=== PATIENT | male | born 1975 | race Caucasian/White ===

== ENCOUNTER 2019-12-01 18:32 | Emergency (ER) | payer OTHER, SELFPAY ==
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
[2019-12-01 18:43] VITALS: BP 153/109; PULSE 147; RESP 40; TEMP 36.4; O2SAT 93
--- NOTE | 2019-12-01 18:47 | ECG_ITS ---
Measurements Intervals [employer] Rate: 143 P: 38 ND: 149 QRS: 9 QRSD: 87 T: 19 QT: 275 QTc: 424 Interpretive Statements SINUS TACHYCARDIA ANTEROSEPTAL INFARCT, AGE INDETERMINATE BASELINE ARTIFACT- II, III, AVF ABNORMAL ECG Electronically Signed On 12-02-2019 6:58:44 CDT by Luis Carlos Wilkinson D.O.
[2019-12-01 18:51] VITALS: O2SAT 97
[2019-12-01 19:03] LABS: Basophils Absolute Auto 0.1 K/mm3 (0.0-0.1); Basophils Percent Auto 0.4 % (0.2-1.2); Eosinophils Absolute Auto 0.4 K/mm3 (0-0.3); Eosinophils Percent Auto 2.4 % (0-4.4); Hematocrit 47.2 % (42.0-52.0); Hemoglobin 15.5 g/dL (14.0-18.0); Immature Granulocyte Absolute 0.09 K/mm3 (0.00-0.031); Immature Granulocyte Percent A 0.6 % (0-0.5); Lymphocytes Absolute Auto 2.14 K/mm3 (0.9-3.2); Lymphocytes Percent Auto 14.7 % (18.3-44.2); Mean Corpuscular HGB Conc 32.8 g/dl (32-36); Mean Corpuscular Hemoglobin 32.4 pg (26-34); Mean Corpuscular Volume 98.5 fl (80-100); Mean Platelet Volume 10.1 fl (7.4-10.4); Monocytes Absolute Auto 1.3 K/mm3 (0.1-0.6); Monocytes Percent Auto 8.6 % (2.6-8.5); Neutrophils Absolute Auto 10.7 K/mm3 (1.3-6.7); Neutrophils Percent Auto 73.3 % (45.5-73.1); Platelet Count Result 299 k/mm3 (150-375); Red Blood Count 4.79 M/mm3 (4.6-6.20); Red Cell Distribution Width 13.2 % (11.5-14.5); White Blood Count 14.6 K/mm3 (4.5-10.0)
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
[2019-12-01 19:14] LABS: Anion Gap 9 mmol/L (8-16); Blood Urea Nitrogen 14 mg/dL (9-20); Carbon Dioxide 29 mmol/L (22-30); Chloride 102 mmol/L (98-107); Estimated CRCL calculation 105 ml/min; Estimated Glomerular Filt Rate > 60; Glucose 141 mg/dL (75-110); Potassium 4.3 mmol/L (3.4-5.0); Sodium 140 mmol/L (137-145)
[2019-12-01] MEDS: ONDANSETRON INJ 4 MG/2 ML VIAL IV PUSH ×2 (19:15→21:13)
[2019-12-01] MEDS: HYDROmorphone HCL INJ (*CRX) 1 MG/ML SYR 0.5 MG IV PUSH ×2 (19:15→21:13)
[2019-12-01 19:21] VITALS: BP 149/107; PULSE 142; RESP 28; O2SAT 95
[2019-12-01 19:44] LABS: Alanine Aminotransferase 42 U/L (4-50); Albumin Level 4.3 g/dL (3.5-5.1); Alkaline Phosphatase 71 U/L (38-126); Aspartate Amino Transferase 41 U/L (17-59); Bilirubin,Total 0.8 mg/dL (0.2-1.3)
[2019-12-01 19:51] LABS: Alveolar/Arterial O2 Gradient 46.7 mmHg; Base Excess ABG -0.4 mEq/l (+/-2.0); Fractional Inspired Oxygen 21 %; HCO3 ABG 23.9 mEq/l (22.0-26.0); Oxygen Content ABG 19.5 %vol (16.0-22.0); Oxygen Saturation ABG 90.1 % (95.0-100.0); Oxyhemoglobin 88.6 % THb (90.0-100.0); PCO2 ABG 38.4 mmHg (35.0-45.0); PO2 FiO2 Ratio Arterial Blood 2.71 %; Total Hemoglobin 15.7 g/dL (12.0-18.0); pH ABG 7.412 (7.350-7.450)
--- NOTE | 2019-12-01 19:56 | PCRCNOTE ---
per Dr. Lafleur request, pt placed back on 2L/M O2 after ABG results
[2019-12-01 19:59] VITALS: BP 133/97; PULSE 135; RESP 25; O2SAT 95
[2019-12-01] MEDS: SODIUM CHLORIDE 0.9% IV 1,000 ML 999 ML IV CONT (20:24)
[2019-12-01 20:25] LABS: Device ROOM AIR; Modified Allen's Test Pass; Site Drawn LEFT RADIAL
--- NOTE | 2019-12-01 20:38 | PC.NURSE ---
Called [facility] to transport patient. ETA [id number]
[2019-12-01 21:05] VITALS: BP 131/93; PULSE 115; RESP 25; O2SAT 96
[2019-12-01 22:03] VITALS: BP 145/94; PULSE 115; RESP 18; O2SAT 99
== END 2019-12-01 22:05 | disposition short-term general hospital (02) ==
PROVIDERS: Emergency Provider Emergency Medicine; PCP Family Medicine
DX: S27.321A Contusion of lung, unilateral, initial encounter (principal); R09.02 Hypoxemia; V23.4XXA Motorcycle driver injured in collision with car, pick-up truck or van in traffic accident, initial encounter
CPT/HCPCS: 36415; 36600; 71045; 80048; 80076; 82805; 85025; 93005; 96361; 96374; 96375; 96376; 99285; J1170; J2405; J7030

== ENCOUNTER 2019-12-08 22:35 | Emergency (ER) | payer OTHER, SELFPAY ==
[2019-12-08 22:37] VITALS: BP 136/91; PULSE 135; RESP 15; TEMP 36.4; O2SAT 96
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
== END 2019-12-08 23:26 | disposition home or self-care (01) ==
PROVIDERS: Emergency Provider Emergency Medicine; PCP Family Medicine
DX: L03.116 Cellulitis of left lower limb (principal)
CPT/HCPCS: 99283; A9270

== ENCOUNTER 2019-12-10 17:41 | Emergency (ER) | payer OTHER, SELFPAY ==
[2019-12-10] VITALS (11 sets, daily range): BP systolic 116–137; BP diastolic 74–93; PULSE 125–133; RESP 22–35; TEMP 36.9; O2SAT 95–100
--- NOTE | ~2019-12-10 | CT_ITS ---
EXAMINATION: CTA [facility] DATE: 12/10/2019 20:08 INDICATION: Swollen discolored left foot. TECHNIQUE: Computed tomographic angiography (CTA) of the left lower extremity from the mid thigh to t he toes was performed with 150 mL Omnipaque-350 intravenous contrast. Automated exposure control and iterative reconstruction technique were employed. The dose-length product was 311.20 mGy-cm. Maximum intensity projection 3D-reconstructions of the arteries were created by the technologist on a [employer] workstation. COMPARISON: None. FINDINGS: There is no significant stenosis in popliteal artery, tibioperoneal trunk, peroneal artery, or the an terior or posterior tibial arteries. There is subcutaneous edema in the foot and ankle. IMPRESSION: 1. No significant arterial occlusive disease. Reviewed, dictated and finalized at location A. [employer]
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
--- NOTE | 2019-12-10 18:47 | PC.NURSE ---
resting on stretcher. waiting for MD.
[2019-12-10 18:49] LABS: Basophils Absolute Auto 0.1 K/mm3 (0.0-0.1); Basophils Percent Auto 0.7 % (0.2-1.2); Eosinophils Absolute Auto 0.8 K/mm3 (0-0.3); Eosinophils Percent Auto 5.6 % (0-4.4); Hematocrit 46.7 % (42.0-52.0); Hemoglobin 15.6 g/dL (14.0-18.0); Immature Granulocyte Percent A 1.4 % (0-0.5); Lymphocytes Absolute Auto 2.41 K/mm3 (0.9-3.2); Lymphocytes Percent Auto 16.7 % (18.3-44.2); Mean Corpuscular HGB Conc 33.4 g/dl (32-36); Mean Corpuscular Hemoglobin 32.4 pg (26-34); Mean Corpuscular Volume 97.1 fl (80-100); Monocytes Absolute Auto 1.2 K/mm3 (0.1-0.6); Monocytes Percent Auto 8.2 % (2.6-8.5); Neutrophils Absolute Auto 9.7 K/mm3 (1.3-6.7); Neutrophils Percent Auto 67.4 % (45.5-73.1); Platelet Count Result 578 k/mm3 (150-375); Red Blood Count 4.81 M/mm3 (4.6-6.20); Red Cell Distribution Width 12.7 % (11.5-14.5); White Blood Count 14.4 K/mm3 (4.5-10.0)
[2019-12-10 18:59] LABS: Prothrombin Time 13.4 Seconds (11.1-14.7)
[2019-12-10 19:00] LABS: Alanine Aminotransferase 64 U/L (4-50); Albumin Level 4.5 g/dL (3.5-5.1); Alkaline Phosphatase 165 U/L (38-126); Anion Gap 10 mmol/L (8-16); Aspartate Amino Transferase 48 U/L (17-59); Bilirubin,Total 0.5 mg/dL (0.2-1.3); Blood Urea Nitrogen 19 mg/dL (9-20); Calcium 9.8 mg/dL (8.4-10.2); Carbon Dioxide 30 mmol/L (22-30); Chloride 98 mmol/L (98-107); Estimated CRCL calculation 96 ml/min; Estimated Glomerular Filt Rate > 60; Glucose 105 mg/dL (75-110); Partial Thromboplastin Time 29.7 SECONDS (22.3-36.8); Potassium 4.6 mmol/L (3.4-5.0); Sodium 138 mmol/L (137-145)
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
--- NOTE | 2019-12-10 20:35 | PC.NURSE ---
provider at bedside. CT results reviewed. no change in patient's condition.
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
== END 2019-12-10 21:16 | disposition home or self-care (01) ==
PROVIDERS: Emergency Provider Emergency Medicine; PCP Family Medicine
DX: L03.116 Cellulitis of left lower limb (principal); S91.012D Laceration without foreign body, left ankle, subsequent encounter; V29.9XXD Motorcycle rider (driver) (passenger) injured in unspecified traffic accident, subsequent encounter
CPT/HCPCS: 36415; 73706; 80053; 85025; 85610; 85730; 99284; Q9967

== ENCOUNTER 2023-04-03 21:08 | Emergency (ER) | payer OTHER, SELFPAY ==
[2023-04-03 21:10] VITALS: BP 148/92; PULSE 92; RESP 16; TEMP 36.6; O2SAT 100
--- NOTE | 2023-04-03 22:40 | ED.WOUNDLAC ---
HPI - Wound/Laceration General Chief Complaint: Wound/Laceration Stated Complaint: Left thumb lac Time Seen by Provider: 04/03/23 22:11 History of Present Illness HPI narrative: 47-year-old male presents to the emergency department for a skin avulsion to his left thumb. Patient states around 5:30 p.m. he was cutting carpet with a razor slipped and cut his left finger. States it is not set bleeding which prompted him come to the ER. He is not anticoagulated. States he is up-to-date on his tetanus. Related Data Home Medications Medication Instructions Recorded Confirmed buspirone 15 mg tablet 15 mg PO BID 12/01/19 oxycodone 5 mg capsule 5 mg PO Q4H PRN Pain 12/01/19 amoxicillin 875 mg-potassium 1 tablet DAILY 12/10/19 12/10/19 clavulanate 125 mg tablet bacitracin 500 unit/gram topical topical BID 12/10/19 ointment (Bacitraycin Plus) bupropion HCl 300 mg 24 hr tablet, 300 mg PO DAILY 12/10/19 12/10/19 extended release cyclobenzaprine 10 mg tablet 10 mg TID PRN Muscle Spasm 12/10/19 lidocaine 5 % topical patch 1 patch DAILY 12/10/19 montelukast 10 mg tablet 10 mg DAILY 12/10/19 naproxen 500 mg tablet 500 mg DAILY 12/10/19 omeprazole 20 mg capsule,delayed 20 mg DAILY 12/10/19 release orphenadrine citrate 100 mg 100 mg PO DAILY 12/10/19 tablet,extended release oxycodone 10 mg tablet 10 mg TID PRN pain 12/10/19 sulfamethoxazole 800 1 tablet BID 12/10/19 mg-trimethoprim 160 mg tablet Allergies Allergy/AdvReac Type Severity Reaction Status Date / Time No Known Allergies Allergy Verified 12/01/19 18:48 Review of Systems Review of Systems: CONSTITUTIONAL: Denies fever, chills, or sweats. EYES: Denies visual changes, redness, or discharge. ENT: Denies rhinorrhea, congestion, sore throat, or otalgia. CARDIOVASCULAR: Denies chest pain, palpitations, or edema. RESPIRATORY: Denies cough or dyspnea. GASTROINTESTINAL: Denies abdominal pain, nausea, vomiting, or diarrhea. GENITOURINARY: Denies dysuria or hematuria. SKIN: See HPI MUSCULOSKELETAL: Denies back pain, joint pain, or myalgia. NEUROLOGIC: Denies headache, numbness, or weakness. PSYCHIATRIC: Denies anxiety or depression. [facility] Past Medical History Medical History Cellulitis Social History Social History Gender identity (if verbalized by the patient): Male Exam Narrative: GENERAL: Well-appearing, well-nourished, and in no acute distress. HEAD: Normocephalic, atraumatic. NECK: Supple. CHEST: Clear to auscultation. No respiratory distress. HEART: Regular rate and rhythm. No murmur heard. Normal peripheral pulses. EXTREMITIES: Normal range of motion. No edema. SKIN: L thumb with an avulsion to the distal phalanx. No nail involvement. Avulsion oozing blood. No deep structures or foreign bodies visualized. Sensation intact throughout. Cap refill less than 2. Full range of motion of finger, sensation intact. NEURO: No focal deficits. Alert and oriented x3 Course Vital Signs Vital signs: Vital Signs Temperature 98 F 04/03/23 21:10 Pulse Rate 92 04/03/23 21:10 Respiratory Rate 16 04/03/23 21:10 Blood Pressure 148/92 H 04/03/23 21:10 Pulse Oximetry 100 04/03/23 21:10 Oxygen Delivery Room Air 04/03/23 21:10 Temperature 98 F 04/03/23 21:10 Pulse Rate 92 04/03/23 21:10 Respiratory Rate 16 04/03/23 21:10 Blood Pressure 148/92 H 04/03/23 21:10 Pulse Oximetry 100 04/03/23 21:10 Oxygen Delivery Room Air 04/03/23 21:10 MDM - Wound/Laceration MDM Narrative Medical decision making narrative: 47-year-old male presents to the emergency department for skin avulsion to his left thumb with difficulty controlling bleeding. He is not anticoagulated. See HPI for further history. Tetanus is up-to-date. Vital stable. Exam is significant for the above. He is neurovascular
[2023-04-04 00:20] VITALS: BP 129/99; PULSE 104; RESP 17; O2SAT 98
== END 2023-04-04 00:22 | disposition home or self-care (01) ==
PROVIDERS: Emergency Provider Physician Assistant; PCP Family Medicine
DX: S61.002A Unspecified open wound of left thumb without damage to nail, initial encounter (principal); W27.8XXA Contact with other nonpowered hand tool, initial encounter
CPT/HCPCS: 12001; 99282